=== PATIENT | male | born 1950 | race Caucasian/White ===

== ENCOUNTER 2017-06-11 10:12 | Emergency (ER) | payer MEDICARE, MEDICAID ==
[2017-06-11 10:24] VITALS: BMI 32.8
[2017-06-11 10:26] VITALS: RESP 18; TEMP 98.1
[2017-06-11] MEDS ORDERED: Aspirin 325 mg EC Tablets PO STA (10:52)
--- NOTE | 2017-06-11 10:53 | C.PDOC ---
History Of Present Illness Patient is a 66 y/o male who presents to the ED with complaints of digitally reproduceable pain to the bilateral sternal area for the last 2 days that worsens with a dry, non-productive cough for the last 4 days. Patient has no other physical complaints at this time. Time Seen by Provider: 06/11/17 10:51 Chief Complaint (Nursing): Chest Pain History Per: Patient History/Exam Limitations: no limitations Onset/Duration Of Symptoms: Days Current Symptoms Are (Timing): Still Present Past Medical History Reviewed: Historical Data, Nursing Documentation, Vital Signs Vital Signs: Last Vital Signs Temp 98.1 F 06/11/17 12:55 Pulse 100 H 06/11/17 12:55 Resp 18 06/11/17 12:55 BP 120/93 H 06/11/17 12:55 Pulse Ox 96 06/11/17 13:42 - Medical History PMH: HTN Denies: Chronic Kidney Disease Other Surgeries: ESOPHAGOGASTRODUODENOSCOPY [EGD] W/CLOSED BIOPSY (08/14/14) - [facility] Procedures ESOPHAGOGASTRODUODENOSCOPY [EGD] W/CLOSED BIOPSY (08/14/14) Family History: States: No Known Family Hx - Social History Hx Tobacco Use: No (former smoker) Hx Alcohol Use: No Hx Substance Use: No Review Of Systems Cardiovascular: Positive for: Chest Pain (digitally reproduceable bilateral sternal pain ) Respiratory: Positive for: Cough (dry, unproductive). Negative for: Sputum Physical Exam - Physical Exam Appears: No Acute Distress Skin: Normal Color, Warm, Dry Head: Atraumatic, Normacephalic Oral Mucosa: Moist Chest: Symmetrical, Tenderness (bilateral sternum) Respiratory: Normal Breath Sounds, No Rales, No Rhonchi, No Wheezing Gastrointestinal/Abdominal: Other (central obesity) Neurological/Psych: Oriented x3, Normal Speech, Normal Cognition ED Course And Treatment - Laboratory Results Result Diagrams: 06/11/17 11:03 06/11/17 11:03 Lab Interpretation: Normal (trop neg.) ECG: Interpreted By Me ECG Rhythm: Sinus Tachycardia ECG Interpretation: Abnormal Rate From EC O2 Sat by Pulse Oximetry: 96 Pulse Ox Interpretation: Normal - Radiology CXR: Interpreted by Me CXR Interpretation: Yes: No Acute Disease Progress Note: [place] Reevaluation Time: 12:42 Reassessment Condition: Improved Medical Decision Making Medical Decision Making: mild non-prod cough with b/l parasternal discomfort, worse with cough, normal ekg/labs/trop more c/w costochondritis. [facility] EKG ordered. Ecotrin and motrin administered. Disposition Doctor Will See Patient In The: Office Counseled Patient/Family Regarding: Studies Performed, Diagnosis - Disposition Referrals: [facility] [Outside] Tarik Cain MD [Staff Provider] - Bettina Edouard MD [Staff Provider] - Disposition: HOME/ ROUTINE Disposition Time: 12:43 Condition: GOOD Additional Instructions: continue motrin 400 mg every 6 hours as needed for bilateral sternal/chest discomfort- this is from coughing. ice packs to the area 1/2 hour per hour, nothing hot. Blood sugar is [facility]ed 133- consider evaluation and treatment for diabetes Follow-up with our outpatient Family Practice [facility]- If you have insurance please follow-up with our Croatian Speaking local doctors- Dr. Edouard or Dr. Cain. Instructions: Costochondritis Forms: [employer] (Luxembourgish) - Clinical Impression Clinical Impression: Chest wall discomfort - Scribe Statement The provider has reviewed the documentation as recorded by the Scribe Flores Ramírez All medical record entries made by the Scribe were at my direction and personally dictated by me. I have reviewed the chart and agree that the record accurately reflects my personal performance of the history, physical exam, medical decision making, and the department course for this patient. I have also personally directed, reviewed, and agree with the discharge instructions and disposition.
[2017-06-11] MEDS ORDERED: Aspirin 325 mg EC Tablets PO ONE (11:10)
[2017-06-11 11:21] LABS: ALBUMIN 4.1 g/dL (3.5-5.0); ALT/SGPT 53 U/L (21-72); AST/SGOT 28 U/L (17-59); BLOOD UREA NITROGEN 13 mg/dL (9-20); CALCIUM 9.1 mg/dl (8.6-10.4); GFR AFRICAN-AMERICAN > 60; GFR NON-AFRICAN AMERICAN > 60
[2017-06-11 11:50] LABS: BASO % 0.6 % (0.0-2.0); EOS # 0.2 K/uL (0.0-0.7); EOS % 2.9 % (0.0-4.0); LYMPH % 13.9 % (20.0-40.0); MEAN CELL VOLUME 81.5 fL (80.0-94.0); MEAN CORPUSCULAR HEMOGLOBIN 28.8 pg (27.0-31.0); MEAN CORPUSCULAR HGB CONC 35.3 g/dL (33.0-37.0); MEAN PLATELET VOLUME 8.7 fL (7.2-11.7); MONO # 0.6 K/uL (0.0-0.8); MONO % 8.7 % (0.0-10.0); NEUT # 5.4 K/uL (1.8-7.0); NEUT % 73.9 % (50.0-75.0); RBC 5.21 Mil/uL (4.40-5.90); RED CELL DISTRIBUTION WIDTH 13.9 % (11.5-14.5); WHITE BLOOD COUNT 7.3 K/uL (4.8-10.8)
[2017-06-11 12:10] LABS: PROTHROMBIN TIME 11.6 SECONDS (9.7-12.2)
--- NOTE | 2017-06-11 12:52 | RAD ---
HISTORY: SOB COMPARISON: Chest x-ray performed 08/09/14 TECHNIQUE: Chest, one view. FINDINGS: LUNGS: Subtle right lower lobe opacity may reflect pneumonia. Correlate clinically. Mild left basilar atelectasis. Please note that chest x-ray has limited sensitivity for the detection of pulmonary masses. PLEURA: No significant pleural effusion identified. No definite pneumothorax . CARDIOVASCULAR: Cardiomegaly. Atherosclerotic calcifications. OSSEOUS STRUCTURES: Degenerative changes. VISUALIZED UPPER ABDOMEN: Unremarkable. OTHER FINDINGS: None. IMPRESSION: Subtle right lower lobe opacity may reflect pneumonia. Correlate clinically. Mild left basilar atelectasis. Cardiomegaly.
[2017-06-11 12:58] VITALS: BP 120/93; PULSE 100
[2017-06-11 13:31] VITALS: O2SAT 96
--- NOTE | 2017-06-13 20:26 | CARD ---
APPROVED REPORT EKG Measurement Heart [id number] <Conclusion> Sinus tachycardia Left anterior fascicular block Abnormal ECG
== END 2017-06-11 13:06 | disposition home or self-care (01) ==
LOC: C.ER 10:12
DX: R07.89 Other chest pain (principal); I10 Essential (primary) hypertension; Z87.891 Personal history of nicotine dependence

== ENCOUNTER 2017-08-07 06:57 | Emergency (ER) | payer MEDICARE, MEDICAID ==
[2017-08-07 06:57] VITALS: BMI 32.8
[2017-08-07 07:29] VITALS: RESP 18; TEMP 97.8
[2017-08-07] MEDS ORDERED: Sodium Chloride 0.9% 1,000 ML IV ONE (07:42)
--- NOTE | 2017-08-07 07:47 | C.PDOC ---
History Of Present Illness 67 year old male, with past medical history of hypertension, presents to ED for evaluation of non-bloody diarrhea for the past 2 days. Patient states he recently flew back from [place], notes he had diarrhea in [place] for 3 days and continued to have diarrhea after coming here. Notes that he developed lower abdominal pain after flying back here. Otherwise, denies any nausea, vomiting, back pain, dysuria, or fever. Time Seen by Provider: 08/07/17 07:34 Chief Complaint (Nursing): Abdominal Pain History Per: Patient History/Exam Limitations: no limitations Onset/Duration Of Symptoms: Days Current Symptoms Are (Timing): Still Present Radiation Of Pain To:: None Quality Of Discomfort: "Pain" Associated Symptoms: Diarrhea. denies: Nausea, Vomiting, Loss Of Appetite, Back Pain, Chest Pain, Constipation, Urinary Symptoms Exacerbating Factors: None Alleviating Factors: None Recent travel outside of the [place]: Yes Additional History Per: Patient Past Medical History Reviewed: Historical Data, Nursing Documentation, Vital Signs Vital Signs: Last Vital Signs Temp 97.8 F 08/07/17 07:24 Pulse 98 H 08/07/17 11:08 Resp 18 08/07/17 11:08 BP 161/102 H 08/07/17 11:08 Pulse Ox 100 08/07/17 11:08 - Medical History PMH: HTN Denies: Chronic Kidney Disease - [facility] Procedures ESOPHAGOGASTRODUODENOSCOPY [EGD] W/CLOSED BIOPSY (08/14/14) Family History: States: Unknown Family Hx - Social History Hx Tobacco Use: No (former smoker) Hx Alcohol Use: No Hx Substance Use: No - Immunization History Hx Influenza Vaccination: No Review Of Systems Except As Marked, All Systems Reviewed And Found Negative. Constitutional: Negative for: Fever, Chills Gastrointestinal: Positive for: Abdominal Pain, Diarrhea. Negative for: Nausea , Vomiting, Constipation, Melena, Hematochezia Genitourinary: Negative for: Dysuria, Frequency, Hematuria, Penile Discharge Musculoskeletal: Negative for: Back Pain Physical Exam - Physical Exam Appears: Non-toxic, No Acute Distress Skin: Normal Color, Warm, Dry Head: Atraumatic, Normacephalic Eye(s): bilateral: Normal Inspection Oral Mucosa: Moist Neck: Normal ROM, Supple Cardiovascular: Rhythm Regular, No Murmur Respiratory: Normal Breath Sounds, No Rales, No Rhonchi, No Wheezing Gastrointestinal/Abdominal: Bowel Sounds, Soft, Tenderness (LLQ more than RLQ), No Guarding, No Rebound Back: No CVA Tenderness Extremity: Normal ROM Neurological/Psych: Oriented x3, Normal Speech ED Course And Treatment - Laboratory Results Result Diagrams: 08/07/17 08:01 08/07/17 08:01 O2 Sat by Pulse Oximetry: 96 (RA) Pulse Ox Interpretation: Normal - CT Scan/US abd/pelvis Other Rad Studies (CT/US): Read By Radiologist, Radiology Report Reviewed CT/US Interpretation: Accession No. : [id number]. Patient Name / ID : NANDINI Melchor / [id number]. Exam Date : 08/07/2017 09:19:56 ( Approved ). Study Comment : Sex / Age : M / 67Y. Creator : Nahun Sunshine MD. Dictator : Hazardous Materials Handler : Embedded Linux Developer : Nahun Sunshine MD. Approver2 : Report Date : 08/07/2017 10:28:39. My Comment : . PROCEDURE: CT Abdomen and Pelvis with contrast. HISTORY: Lower abdominal pain, diarrhea. COMPARISON : None. TECHNIQUE: Contiguous axial images of the abdomen and pelvis performed following intravenous injection of approximately 100 cc Omnipaque 350 contrast material. Additional 2D sagittal and coronal reformats generated. Radiation dose: Total exam DLP =. This CT exam was performed using one or more of the following dose reduction techniques: Automated exposure control, adjustment of the mA and/or kV according to patient size, and/or use of iterative reconstruction technique. . FINDINGS: LOWER THORAX: Mild passive/ dependent type atelectasis with questionable mid minor scarring changes both lung bases including a linear region and to a lesser degree middle lobe. . No effusion or basilar pneumothorax. Heart size is the mildly enlarged. No significant pericardial effusion. There is a small hiatal hernia with slight wall thickening of distal esophagus that could be due to protrusion of gastric mucosa. Possibility of esophagitis not excluded. LIVER: Spleen is enlarged measuring over 21 cm in CC dimension. Moderate fatty hepatic infiltration. No obvious hepatic mass or collection. Portal and splenic veins are opacified. GALLBLADDER AND BILE DUCTS: Gallbladder is physiologically distended. No evidence of intraluminal gallbladder calculi. PANCREAS: Unremarkable. No mass. No ductal dilatation. SPLEEN: Spleen is enlarged measuring nearly over 16 cm in CC dimension. No obvious splenic masses or collections. ADRENALS: Unremarkable. KIDNEYS AND URETERS: The kidneys demonstrate symmetric nephrograms. No evidence of nephrolithiasis or hydronephrosis. Multiple bilateral renal cysts are present. BLADDER: Urinary bladder is appears incompletely distended which may in part account for slight thick-walled appearance. Cystitis in a male patient would be on likely in the absence of a pertinent clinical history. Correlation with urinalysis recommended No evidence of intraluminal urinary bladder calculi. REPRODUCTIVE: Prostate gland is enlarged and exhibits heterogeneous attenuation with a few presumed punctate calcifications. Findings likely due to BPH however correlation PSA recommended. APPENDIX: Unremarkable. BOWEL: Evaluation of the bowel is limited due to the lack of oral contrast. The stomach is the incompletely distended which in part accounts for thick-walled appearance and prominent rugal folds however Clinical correlation recommended to exclude the possibility of gastritis. Visualized loops of small bowel exhibit normal contour and caliber. No evidence of acute mechanical small bowel obstruction. There is wall thickening of the distal half of the ascending colon, the entire transverse colon and remaining colon consistent with a nonspecific colitis. Clinical correlation recommended. PERITONEUM: Unremarkable. No fluid collection. No free air. Small fat containing umbilical hernia. . There also small on fat containing bilateral inguinal hernias. LYMPH NODES: There are multiple small nonspecific mesenteric lymph nodes seen possibly reactive. VASCULATURE: Unremarkable. No aortic aneurysm. BONES: Mild multilevel degenerative spondylosis of the visualized lower thoracic and lumbar spine. OTHER FINDINGS: None. IMPRESSION: Findings consistent with colitis as described. Hepatosplenomegaly. Fatty infiltration. Bilateral renal cysts. Enlarged prostate gland likely due to BPH however correlation with PSA recommended. See above discussion for additional details and findings Medical Decision Making Medical Decision Making: Plan: Abd & Pelvis CT Blood work Urinalysis Protonix, Toradol, IV fluids Progress: Labs reviewed with no acute findings CT shows no evidence of acute mechanical small bowel obstruction. There is wall thickening of the distal half of the ascending colon, the entire transverse colon and remaining colon consistent with a nonspecific colitis. Reassess Patient was sleeping comfortably in no distress. He reports feeling better, the pain has much improved and denies any diarrhea episodes during ED evaluation. He remained afebrile and in no distress. He feels comfortable going home and will be discharged with Rx for Cipro. Advise follow up with PMD. Disposition Counseled Patient/Family Regarding: Diagnosis, Need For Followup, Rx Given - Disposition Referrals: Jose Valencia MD [Staff Provider] - Disposition: HOME/ ROUTINE Disposition Time: 10:44 Condition: IMPROVED Additional Instructions: Rx sent to [facility] pharmacy Drink fluids to prevent dehydration. Try low-fat diet with increase in fluids such as sport drink, gelatin. Try soup, rice, bread, crackers, cereal, bananas to help with diarrhea. Avoid high sugar foods or drinks (soda and juice) , fatty foods Prescriptions: Ciprofloxacin [Cipro] 1 tab PO BID #6 tab Instructions: Diarrhea and Traveler's Diarrhea, Adult (DC) Forms: [employer] (Estonian) - POA Present On Arrival: None - Clinical Impression Clinical Impression: Travelers' diarrhea, Colitis - PA / CYTOGENETIC TECHNICIAN / Resident Statement MD/DO has reviewed & agrees with the documentation as recorded. - Scribe Statement The provider has reviewed the documentation as recorded by the Laurenibcourtney Cifuentes All medical record entries made by the Laurenibcourtney were at my direction and personally dictated by me. I have reviewed the chart and agree that the record accurately reflects my personal performance of the history, physical exam, medical decision making, and the department course for this patient. I have also personally directed, reviewed, and agree with the discharge instructions and disposition.
[2017-08-07] MEDS ORDERED: Sodium Chloride 0.9% 1,000 ML ONE (07:59)
[2017-08-07 08:04] LABS: BASO # 0.1 K/uL (0.0-0.2); BASO % 1.1 % (0.0-2.0); EOS # 0.1 K/uL (0.0-0.7); EOS % 1.8 % (0.0-4.0); LYMPH # 1.2 K/uL (1.0-4.3); LYMPH % 22.3 % (20.0-40.0); MEAN CELL VOLUME 80.9 fL (80.0-94.0); MEAN CORPUSCULAR HEMOGLOBIN 28.6 pg (27.0-31.0); MEAN CORPUSCULAR HGB CONC 35.3 g/dL (33.0-37.0); MEAN PLATELET VOLUME 8.4 fL (7.2-11.7); MONO # 0.5 K/uL (0.0-0.8); MONO % 9.2 % (0.0-10.0); NEUT # 3.7 K/uL (1.8-7.0); NEUT % 65.6 % (50.0-75.0); NRBC % 0.2 % (0.0-2.0); RBC 4.9 Mil/uL (4.40-5.90); WHITE BLOOD COUNT 5.6 K/uL (4.8-10.8)
[2017-08-07 08:19] LABS: ALT/SGPT 21 U/L (21-72); AST/SGOT 24 U/L (17-59); BLOOD UREA NITROGEN 12 mg/dL (9-20); CALCIUM 9.2 mg/dl (8.6-10.4); GFR AFRICAN-AMERICAN > 60; GFR NON-AFRICAN AMERICAN > 60; LIPASE 89 U/L (23-300)
[2017-08-07 08:20] LABS: ALB/GLOB RATIO 0.9 (1.0-2.1); ALBUMIN 3.8 g/dL (3.5-5.0)
[2017-08-07 08:34] LABS: SQUAMOUS EPITHIAL < 1 /hpf (0-5); URINE BILIRUBIN NEGATIVE (NEGATIVE); URINE BLOOD 2+ (NEGATIVE); URINE CLARITY Clear (Clear); URINE COLOR Yellow (YELLOW); URINE GLUCOSE (UA) NORMAL (Normal); URINE LEUKOCYTE ESTERASE NEG Leu/uL (Negative); URINE PROTEIN 2+ mg/dL (NEGATIVE); URINE UROBILINOGEN NORMAL mg/dL (0.2-1.0)
--- NOTE | 2017-08-07 10:30 | CT ---
PROCEDURE: CT Abdomen and Pelvis with contrast. HISTORY: Lower abdominal pain, diarrhea COMPARISON: None. TECHNIQUE: Contiguous axial images of the abdomen and pelvis performed following intravenous injection of approximately 100 cc Omnipaque 350 contrast material. Additional 2D sagittal and coronal reformats generated. Radiation dose: Total exam DLP = This CT exam was performed using one or more of the following dose reduction techniques: Automated exposure control, adjustment of the mA and/or kV according to patient size, and/or use of iterative reconstruction technique. . FINDINGS: LOWER THORAX: Mild passive/dependent type atelectasis with questionable mid minor scarring changes both lung bases including a linear region and to a lesser degree middle lobe. . No effusion or basilar pneumothorax. Heart size is the mildly enlarged. No significant pericardial effusion. There is a small hiatal hernia with slight wall thickening of distal esophagus that could be due to protrusion of gastric mucosa. Possibility of esophagitis not excluded. LIVER: Spleen is enlarged measuring over 21 cm in CC dimension. Moderate fatty hepatic infiltration. No obvious hepatic mass or collection. Portal and splenic veins are opacified. GALLBLADDER AND BILE DUCTS: Gallbladder is physiologically distended. No evidence of intraluminal gallbladder calculi. PANCREAS: Unremarkable. No mass. No ductal dilatation. SPLEEN: Spleen is enlarged measuring nearly over 16 cm in CC dimension. No obvious splenic masses or collections. ADRENALS: Unremarkable. KIDNEYS AND URETERS: The kidneys demonstrate symmetric nephrograms. No evidence of nephrolithiasis or hydronephrosis. Multiple bilateral renal cysts are present. BLADDER: Urinary bladder is appears incompletely distended which may in part account for slight thick-walled appearance. Cystitis in a male patient would be on likely in the absence of a pertinent clinical history. Correlation with urinalysis recommended No evidence of intraluminal urinary bladder calculi. REPRODUCTIVE: Prostate gland is enlarged and exhibits heterogeneous attenuation with a few presumed punctate calcifications. Findings likely due to BPH however correlation PSA recommended. APPENDIX: Unremarkable. BOWEL: Evaluation of the bowel is limited due to the lack of oral contrast. The stomach is the incompletely distended which in part accounts for thick-walled appearance and prominent rugal folds however Clinical correlation recommended to exclude the possibility of gastritis. Visualized loops of small bowel exhibit normal contour and caliber. No evidence of acute mechanical small bowel obstruction. There is wall thickening of the distal half of the ascending colon, the entire transverse colon and remaining colon consistent with a nonspecific colitis. Clinical correlation recommended. PERITONEUM: Unremarkable. No fluid collection. No free air. Small fat containing umbilical hernia. . There also small on fat containing bilateral inguinal hernias. LYMPH NODES: There are multiple small nonspecific mesenteric lymph nodes seen possibly reactive. VASCULATURE: Unremarkable. No aortic aneurysm. BONES: Mild multilevel degenerative spondylosis of the visualized lower thoracic and lumbar spine OTHER FINDINGS: None. IMPRESSION: Findings consistent with colitis as described. Hepatosplenomegaly. Fatty infiltration. Bilateral renal cysts. Enlarged prostate gland likely due to BPH however correlation with PSA recommended. See above discussion for additional details and findings
[2017-08-07 11:09] VITALS: BP 161/102; PULSE 98
[2017-08-07 13:00] VITALS: O2SAT 96
== END 2017-08-07 11:09 | disposition home or self-care (01) ==
LOC: C.ER 06:57
DX: K52.9 Noninfective gastroenteritis and colitis, unspecified (principal); I10 Essential (primary) hypertension; Z87.891 Personal history of nicotine dependence
CPT/HCPCS: 74177; 80053; 81001; 83690; 85025; 96361; 96374; 96375; 99284; C9113; J1885; J7040

== ENCOUNTER 2018-01-13 10:00 | Emergency (ER) | payer MEDICARE, MEDICAID ==
[2018-01-13 10:00] VITALS: BMI 32.8
[2018-01-13] MEDS ORDERED: Sodium Chloride 0.9% 500 ML IV ONE (10:50)
[2018-01-13] MEDS ORDERED: Albuterol 0.083% Inhal Sol (2.5 mg/3 mL) UD IH STA (10:51)
[2018-01-13] MEDS ORDERED: Albuterol 0.083% Inhal Sol (2.5 mg/3 mL) UD ONE (11:11)
[2018-01-13] MEDS ORDERED: Sodium Chloride 0.9% 1,000 ML ONE (11:12)
[2018-01-13 11:29] LABS: BASO % 0.8 % (0.0-2.0); EOS # 0.2 K/uL (0.0-0.7); EOS % 3.6 % (0.0-4.0); HEMOGLOBIN 15.1 g/dL (12.0-18.0); LYMPH # 1.9 K/uL (1.0-4.3); LYMPH % 30.7 % (20.0-40.0); MEAN CELL VOLUME 81.5 fL (80.0-94.0); MEAN CORPUSCULAR HEMOGLOBIN 28.5 pg (27.0-31.0); MEAN PLATELET VOLUME 8.4 fL (7.2-11.7); MONO # 0.4 K/uL (0.0-0.8); MONO % 6.5 % (0.0-10.0); NEUT # 3.6 K/uL (1.8-7.0); NEUT % 58.4 % (50.0-75.0); NRBC % 0.1 % (0.0-2.0); RBC 5.29 Mil/uL (4.40-5.90); RED CELL DISTRIBUTION WIDTH 13.9 % (11.5-14.5); WHITE BLOOD COUNT 6.2 K/uL (4.8-10.8)
[2018-01-13 11:37] LABS: INR 1.1; PROTHROMBIN TIME 11.7 SECONDS (9.7-12.2)
[2018-01-13 11:44] LABS: ALB/GLOB RATIO 1.3 (1.0-2.1); ALBUMIN 4.5 g/dL (3.5-5.0); ALT/SGPT 35 U/L (21-72); AST/SGOT 25 U/L (17-59); BLOOD UREA NITROGEN 13 mg/dL (9-20); CALCIUM 9.6 mg/dl (8.6-10.4); GFR NON-AFRICAN AMERICAN > 60
--- NOTE | 2018-01-13 11:49 | C.PDOC ---
History Of Present Illness 67-year-old male w/PMHx of HTN, COPD, GERD, comes in for evaluation of shortness of breath, intermittently for the past 1-2 weeks, that is described as worse with physical activity. Additionally, pt is requesting evaluation of right thumb pain on-off for two weeks. He reports heavy lifting and using right hand at work. Pt denies fever, chills, dizziness, headache, neck pain, CP, wheezing, palpitation, diaphoresis, abd. pain, nausea/vomiting, back pian, UTI sx, denies weakness, sensory or vascular deficits to Right hand, denies or any other associated symptoms. No other complaints at this time. Time Seen by Provider: 01/13/18 10:33 Chief Complaint (Nursing): Shortness Of Breath History Per: Patient History/Exam Limitations: no limitations Past Medical History Reviewed: Historical Data, Nursing Documentation, Vital Signs Vital Signs: Last Vital Signs Temp 97.5 F L 01/13/18 10:03 Pulse 91 H 01/13/18 10:03 Resp 21 01/13/18 10:03 BP 157/94 H 01/13/18 10:03 Pulse Ox 96 01/13/18 10:03 - Medical History PMH: HTN - [facility] Procedures ESOPHAGOGASTRODUODENOSCOPY [EGD] W/CLOSED BIOPSY (08/14/14) Family History: States: No Known Family Hx - Social History Hx Tobacco Use: No (former smoker) Hx Alcohol Use: No Hx Substance Use: No - Immunization History Hx Tetanus Toxoid Vaccination: No Hx Influenza Vaccination: Yes (2018) Hx Pneumococcal Vaccination: No Review Of Systems Constitutional: Negative for: Fever, Chills Cardiovascular: Negative for: Chest Pain, Palpitations Respiratory: Positive for: Shortness of Breath, SOB with Excertion. Negative for: Cough, Wheezing Gastrointestinal: Negative for: Vomiting Musculoskeletal: Positive for: Hand Pain. Negative for: Back Pain Physical Exam - Physical Exam Appears: Well, Non-toxic, No Acute Distress Skin: Warm, Dry, No Rash Head: Normacephalic Eye(s): bilateral: PERRL Nose: No Flaring, No Discharge Oral Mucosa: Moist, No Drooling Throat: No Erythema, No Drooling Neck: Normal ROM, Trachea Midline, Supple Chest: Symmetrical Cardiovascular: Rhythm Regular, No Murmur, No JVD, Other ((-) carotid bruits B/L) Respiratory: No Decreased Breath Sounds, No Accessory Muscle Use, No Rales, No Rhonchi, No Stridor, Wheezing (scattered bibasilar exp wheezing, BS equal B/L) Gastrointestinal/Abdominal: Soft, No Tenderness, No Distention, No Guarding Back: No CVA Tenderness Extremity: Normal ROM, No Pedal Edema, No Deformity, Other (Mild tenderness of t henar aspect of right hand) Pulses: Left Radial: Normal, Right Radial: Normal Neurological/Psych: Oriented x3, Normal Speech, Normal Motor, Normal Sensation, Normal Reflexes ED Course And Treatment - Laboratory Results Result Diagrams: 01/13/18 11:26 01/13/18 11:26 Lab Interpretation: No Acute Changes ECG: Interpreted By Me, Viewed By Me (and ED attending) ECG Rhythm: Sinus Rhythm ECG Interpretation: Normal, Abnormal Interpretation Of ECG: SR@84/min, LAD, RBBB, LAFB, no acute ST-T changes O2 Sat by Pulse Oximetry: 96 Pulse Ox Interpretation: Normal (RA) - Radiology CXR: Interpreted by Me, Viewed By Me, Read By Radiologist CXR Interpretation: Yes: No Acute Disease Progress Note: On re-eval, pt is afebrile, hemodynamicaly stable. Non-toxic. PulsOEx 95% RA. ENT: no acute findings. neck: Supple, (-) meningeal sign, (-) JVD, (-) carotid bruits. Lungs: CTA B/L, BS equal B/L. CVS: (+)S1S2, reg, (-) murmur. Abd: benign, (-) guarding, (-) rebound. Neurologicaly intact. Blood work review and appears without acute changes. CXR- normal study. Troponin I, BNP- normal. Case discused with ED attending, blood work, EKG, CXR review and discharge with outpt f/u recommend at this time. Pt has clinical findings c/w COPD exacerbation, dyspnea. Pt advised and ref. to f/u with PMD, cardiology in 1-2 days for re-eavl. return to ED if any worsening or new changes. Disposition Counseled Patient/Family Regarding: Studies Performed, Diagnosis, Need For Followup, Rx Given - Disposition Referrals: [facility] [Outside] Jordan Parekh MD [Staff Provider] - Disposition: HOME/ ROUTINE Disposition Time: 12:37 Condition: STABLE Additional Instructions: take medication as prescribed Follow up with PMD in 2-3 days for re-evaluation. return to ED if any worsening or new changes. Prescriptions: Albuterol HFA [Ventolin HFA 90 mcg/actuation (8 g)] 1 puff IH Q6 #1 inhaler Prednisone [Deltasone] 40 mg PO DAILY #6 tablet Instructions: Exacerbation of COPD, Hand Sprain (ED) Forms: [employer] (Tunisian) - Clinical Impression Clinical Impression: Dyspnea, COPD (chronic obstructive pulmonary disease), Strain of thumb - Scribe Statement The provider has reviewed the documentation as recorded by the Scribe (Nestor Aquino) All medical record entries made by the Scribe were at my direction and personally dictated by me. I have reviewed the chart and agree that the record accurately reflects my personal performance of the history, physical exam, m edical decision making, and the department course for this patient. I have also personally directed, reviewed, and agree with the discharge instructions and disposition.
[2018-01-13 11:55] LABS: B-TYPE NATRIURETIC PEPTIDE 46.5 pg/mL (0-900)
[2018-01-13 12:04] LABS: SQUAMOUS EPITHIAL < 1 /hpf (0-5); URINE BILIRUBIN NEGATIVE (NEGATIVE); URINE BLOOD 1+ (NEGATIVE); URINE CLARITY Clear (Clear); URINE COLOR Yellow (YELLOW); URINE GLUCOSE (UA) NORMAL (Normal); URINE LEUKOCYTE ESTERASE NEG Leu/uL (Negative); URINE PROTEIN 1+ mg/dL (NEGATIVE); URINE UROBILINOGEN NORMAL mg/dL (0.2-1.0)
--- NOTE | 2018-01-13 12:20 | RAD ---
HISTORY: Chest pain COMPARISON: 06/11/2017. TECHNIQUE: Chest PA and lateral FINDINGS: LINES AND TUBES: None. LUNG AND PLEURA: The lungs are well inflated and clear. No pleural effusion or pneumothorax. HEART AND MEDIASTINUM: The heart is not enlarged. The hilar and mediastinal contours are within normal limits. SKELETAL STRUCTURES: The bony structures are within normal limits for the patient's age. VISUALIZED UPPER ABDOMEN: Normal. OTHER FINDINGS: None. IMPRESSION: No active pulmonary disease.
--- NOTE | 2018-01-13 12:26 | RAD ---
Date of service: 01/13/2018 PROCEDURE: Right Thumb radiographs. HISTORY: pain COMPARISON: None. TECHNIQUE: AP radiograph of the right hand, as well as spot oblique and lateral images of thumb were obtained. FINDINGS: RIGHT THUMB: Normal right thumb, without acute fracture or focal lesion. There is mild bone demineralization. Remainder of the right hand (as seen on the AP view) grossly unremarkable. JOINTS: Normal. SOFT TISSUES: Normal. OTHER FINDINGS: None. IMPRESSION: No acute fracture or dislocation.
[2018-01-13 12:32] VITALS: BP 146/90; PULSE 86; RESP 18; TEMP 97.8
[2018-01-13 12:40] VITALS: O2SAT 96
--- NOTE | 2018-01-16 20:47 | CARD ---
APPROVED REPORT Date of service: 01/13/2018 EKG Measurement Heart [id number] <Conclusion> Normal sinus rhythm Right bundle branch block Left anterior fascicular block Bifascicular block Abnormal ECG
== END 2018-01-13 13:30 | disposition home or self-care (01) ==
LOC: C.ER 10:00
DX: J44.9 Chronic obstructive pulmonary disease, unspecified (principal); R06.00 Dyspnea, unspecified; S69.91XA Unspecified injury of right wrist, hand and finger(s), initial encounter; X58.XXXA Exposure to other specified factors, initial encounter; Z87.891 Personal history of nicotine dependence; I10 Essential (primary) hypertension
CPT/HCPCS: 71046; 73140; 80053; 81001; 83880; 84484; 85025; 85610; 85730; 94640; 96374; 99285; J2930; J7040